=== PATIENT | male | born 1960 | race Caucasian/White ===

== ENCOUNTER 2020-08-19 14:50 | Outpatient (REF) | payer MEDICARE, MEDICAID, SELFPAY ==
[2020-08-19 15:51] LABS: Hematocrit 38.1 % (42-52); Hemoglobin 12.3 g/dl (14.0-18.0); Mean Corpuscular HGB Conc 32.3 g/dl (31.0-36.0); Mean Corpuscular Hemoglobin 28.7 pg (27.0-33.0); Mean Corpuscular Volume 88.8 fL (80-98); Mean Platelet Volume 12.4 fL (9.4-12.4); Platelet Count 165 X10*3/uL (160-400); Red Blood Count 4.29 X10*6/uL (4.60-5.80); Red Cell Distribution Width 13.2 % (11.0-16.0)
[2020-08-19 15:55] LABS: Glucose Urine UA NEG (NEG); Leukocyte Esterase Urine NEG (NEG); Nitrite Urine NEG (NEG); PH 5.5 (5.0-8.0); Specific Gravity - Urine 1.015 (1.005-1.025); Urine Blood TRACE (NEG); Urine Ketones NEG (NEG); Urine Protein NEG (NEG-TRACE)
[2020-08-19 15:56] LABS: Appearance Urine CLEAR; Color Urine YELLOW
[2020-08-19 16:05] LABS: WBC Urine 0 /HPF (0-4)
[2020-08-19 16:17] LABS: Albumin Level 4.7 g/dL (3.5-5.0); Anion Gap 13 (12-20); Blood Urea Nitrogen 24 mg/dL (9-16); Calcium 10.4 mg/dL (8.4-10.2); Carbon Dioxide 27 mmol/L (22-29); Chloride 107 mmol/L (96-108); Estimated Glomerular Filt Rate > 60; Magnesium 1.7 mg/dL (1.6-2.6); Phosphorus 2.8 mg/dL (2.7-4.5); Potassium 4.5 mmol/L (3.3-5.1); Sodium 142 mmol/L (135-145)
[2020-08-19 16:21] LABS: Creatinine Urine 47.42 mg/dL; Protein/Creatinine Ratio, Ur 0.25 (<0.2); Total Protein Urine Random 12 mg/dL (<12)
[2020-08-19 16:38] LABS: Vitamin D 25-OH Total 24.8 ng/mL (>30)
[2020-08-20 19:47] LABS: Calcium (PTHI) 10.3 mg/dL (8.6-10.3); PTHI 72 pg/mL (14-64)
== END 2020-08-19 14:51 | disposition home or self-care (01) ==
LOC: HO.LAB 14:50
PROVIDERS: Visit Provider Internal Medicine Nephrology
DX: N25.0 Renal osteodystrophy (principal); N18.31 Chronic kidney disease, stage 3a; I10 Essential (primary) hypertension; E11.21 Type 2 diabetes mellitus with diabetic nephropathy; R80.1 Persistent proteinuria, unspecified
CPT/HCPCS: 36415; 80051; 81001; 82040; 82306; 82310; 82565; 83735; 83970; 84100; 84156; 84520; 85027; 87086

== ENCOUNTER 2020-09-25 08:11 | Emergency (ER) | payer MEDICARE, MEDICAID, SELFPAY ==
--- NOTE | ~2020-09-25 | XR_ITS ---
EXAMINATION: CHEST AND LEFT RIB X-RAY AND LUMBAR SPINE X-RAY CLINICAL INFORMATION: Pain. No history of trauma. COMPARISON: Previous chest x-rays most recent January 2012 TECHNIQUE: 3 views of the lumbar spine and one view of the chest and 3 views of the left ribs FINDINGS: Lumbar spine: Bone alignment is normal. No fracture or dislocation is seen. There is multilevel degenerative spondylosis. There is degenerative disc disease at L5-S1. There is lower lumbar spine facet arthritis. There is evidence of atherosclerotic disease. There is a radiopaque density that projects over the left superior endplate of the L4 vertebral body on the AP view. This is not appreciated on lateral views. Chest and left RIBS: The cardiac and mediastinal contours are normal. The lungs are clear. There is no pleural effusion or pneumothorax. There are degenerative changes of the spine. The left ribs are unremarkable. No fracture or bone lesion is seen. XR/XR lumbar spine 2-3V IMPRESSION: Lumbar spine: Degenerative changes. Chest and left RIBS: Degenerative changes of the thoracic spine otherwise exam.
--- NOTE | ~2020-09-25 | XR_ITS ---
EXAMINATION: CHEST AND LEFT RIB X-RAY AND LUMBAR SPINE X-RAY CLINICAL INFORMATION: Pain. No history of trauma. COMPARISON: Previous chest x-rays most recent January 2012 TECHNIQUE: 3 views of the lumbar spine and one view of the chest and 3 views of the left ribs FINDINGS: Lumbar spine: Bone alignment is normal. No fracture or dislocation is seen. There is multilevel degenerative spondylosis. There is degenerative disc disease at L5-S1. There is lower lumbar spine facet arthritis. There is evidence of atherosclerotic disease. There is a radiopaque density that projects over the left superior endplate of the L4 vertebral body on the AP view. This is not appreciated on lateral views. Chest and left RIBS: The cardiac and mediastinal contours are normal. The lungs are clear. There is no pleural effusion or pneumothorax. There are degenerative changes of the spine. The left ribs are unremarkable. No fracture or bone lesion is seen. XR/XR ribs LT min 3V w CXR1V IMPRESSION: Lumbar spine: Degenerative changes. Chest and left RIBS: Degenerative changes of the thoracic spine otherwise exam.
[2020-09-25 08:37] VITALS: BP 132/68; PULSE 94; RESP 16; TEMP 36.6; O2SAT 99; BMI 25.1
--- NOTE | 2020-09-25 08:46 | ED_ITS ---
HPI - Back Pain/Injury General Chief Complaint: Back Pain/Injury Stated Complaint: lt side flank pain Time Seen by Provider: 09/25/20 08:41 Source: patient Mode of arrival: ambulatory Limitations: no limitations History of Present Illness HPI Narrative: 60-year-old male with a past medical history of intermediate coronary syndrome, hypertension, diabetes, pancytopenia and anemia presenting to the ED with complaints of atraumatic lower back pain since yesterday worse today. Also reports that when he was resting in bed last night he fell almost like a muscle spasm to his left lateral ribcage although resolved shortly after and has not returned. Denies any dizziness, fevers, neck pain/stiffness, runny nose, nasal congestion, changes in vision, nausea/vomiting, jaw pain, palpitations, chest pain, cough, shortness of breath, dyspnea on exertion, orthopnea, lower extremity edema, abdominal pain, dysuria, hematuria, incontinence, diarrhea constipation or any other symptoms complaints or concerns at this time. MD elicited complaint: back pain Pertinent past history: prior back pain (Was told he had arthritis) Onset (ago): day(s) (Since yesterday) Timing: constant and progressively worsening Severity: mild Similar Symptoms Previously: Yes Quality: aching Location: lumbar spine, right lower back and left lower back Radiation: none Exacerbating factors: none Relieving factors: none Associated symptoms: denies other symptoms Work related injury: No Related Data Home Medications Medication Instructions Recorded Confirmed Artificial Tears (PF) 03/15/20 acetaminophen [Tylenol Extra 500 mg PO Q6H PRN 03/15/20 03/15/20 Strength] amlodipine 5 mg PO DAILY 03/15/20 03/15/20 aspirin [Aspir-81] 03/15/20 atorvastatin 40 mg PO DAILY 03/15/20 03/15/20 gabapentin 100 mg PO TID 03/15/20 03/15/20 hydralazine 50 mg PO BID 03/15/20 03/15/20 insulin glargine [Lantus U-100 20 unit SUBCUT DAILY 03/15/20 03/15/20 Insulin] losartan 50 mg PO DAILY 03/15/20 03/15/20 metformin [Glucophage] 1,000 mg PO DAILY 03/15/20 03/15/20 Previous Rx's Medication Instructions Recorded cyclobenzaprine 10 mg PO Q8H #10 tab 09/25/20 lidocaine HCl [Aspercreme 1 appl TOPICAL BID PRN #120 g 09/25/20 (lidocaine HCl)] naproxen 500 mg PO BID PRN #10 tab 09/25/20 oxycodone-acetaminophen [Percocet] 1 tab PO Q6H PRN #10 tab 09/25/20 Allergies Allergy/AdvReac Type Severity Reaction Status Date / Time Penicillins [PENICILLINS] AdvReac Intermediate INCREASED Unverified 12/28/19 16:24 FEVER(CHILDHOOD) PCN Allergy Unknown ? reaction Uncoded 05/01/13 00:00 Review of Systems Review of Systems: Constitutional : No trauma, No Weight loss, No Fever, No Chills, ENT/Mouth : No Hearing loss, No Ear Pain, No Nasal Congestion, No Sinus Pain, No Hoarseness, No sore throat, No Rhinorrhea, No Swallowing Difficulty Cardiovascular : positive left lateral rib cage pain, No Chest Pain, No SOB Respiratory : No Cough, No Dyspnea Gastrointestinal : No Nausea, No Vomiting, No Diarrhea, No abdominal Pain, No Hematochezia, No Melena Genitourinary : No Dysuria, No Urinary Frequency, No Hematuria, No Urinary or Bowel Incontinence/retention Musculoskeletal : + Back pain, No neck pain, No joint stiffness, No joint swelling Skin : No Skin Lesions, No rash or signs of infection Neuro : No Weakness, No radiation, No Numbness, No Paresthesias, No headache, no loss of bowel or bladder incontinence, no saddle anesthesia, Focal weakness, No radiation Denies history of IV drug usage. Yes all other systems are reviewed and are negative PMFSH Past Medical History Attestation statement: The following information was validated with the patient. Medical History Anemia Diabetes HTN (hypertension) Pancytopenia Family History Family History Brother Diabetes HTN (hypertension) Mother Diabetes HTN (hypertension) Social History Social History Alcohol intake: former Advance Directives: No Advance Directives Information Provided: No Physical Exam Vital Signs: Vital Signs: Last Vital Signs Temp 99.1 F 09/25/20 09:23 Pulse 85 09/25/20 09:23 Resp 16 06/16/21 09:23 BP 120/68 09/25/20 09:23 Pulse Ox 99 09/25/20 09:23 Body Mass Index 25.1 vital signs have been reviewed as normal and appeared to be correct. Blood pressure normal. Heart rate normal. Respiration rate normal. Temperature normal. Oxygen saturation normal. Appearance: Alert. Oriented X3. No acute distress. Head: Normal external exam. Normocephalic. Atraumatic. Eyes: PERRLA. EOMI. Conjunctiva and sclera normal. Eyelids normal. ENT: EAC normal. TM's Normal. Pharynx normal. Uvula midline. Moist mucous membranes. Neck: Normal inspection. Neck supple. FROM. No adenopathy. Thyroid Normal. No meningeal signs. No neck mass noted. CVS: Normal heart rate and rhythm. Heart sound normal. No murmurs noted. Pulses normal throughout. Respiratory: No respiratory distress. Painless inspiration. Breath sounds normal. No wheezes/rales/rhonchi noted. Chest nontender. No accessory muscle usage noted or decreased air movement noted. No rashes/induration/fluctuance or signs of infection noted. No crepitus noted. Abdomen: Soft and nontender. Bowel sounds normal in all 4 quadrants. No distention noted. No organomegaly noted. No visible injury noted. Back: No CVA tenderness. Full range of motion noted. No obvious deformities, or edema. Mild para-spinal muscular tenderness from lumbar region to coccyx. Full ROM in back and lower extremities. 5/5 strength hip extension/flexion, abduction, adduction. Mild Lumbar pain with hip flexion against resistance. Straight leg raise test negative on right; Straight leg raise test negative on left; Reflexes normal ankle and knee bilaterally; EHL motor strength normal bilaterally. No rashes/lesion/induration/fluctuance or signs infection noted. Skin: Skin warm and dry. Normal skin color. Normal skin turgor. No rashes/lesions/lacerations noted. Extremities: Extremities exhibit normal range of motion. Extremities nontender. Neuro: Oriented X 3. No motor deficit. No sensory deficit. Reflexes normal. Patient has a normal steady gait. Course Course Course Narrative: Pt c likely muscular pain, but could be herniated disc. Neuro exam shows no deficits. Not c/w AAA/epidural abscess/dissection.No high risk Hx (Incont, fever, immunosupp, recent surgery/LP, coag, signif trauma, wt loss, puls mass, hx/o Ca, TB, or IVDU) to warrant MRI/CT today. Not c/w Pyelo/UTI/kidney stone/spinal fx. Not cauda equina syndrome. Patient requested imaging of ribs and lumbar spine therefore obtained and revealed chronic changes such as arthritis no acute processs. DC c meds and f/u. MDM - Back Pain/Injury Medical Records Attestation: I reviewed the patient's medical records. Imaging Data Left sided ribs/PA chest/lumbar spine x-rays: Attestation: I personally reviewed and interpreted this imaging study as follows: Radiologist's impression: FINDINGS: Lumbar spine: Bone alignment is normal. No fracture or dislocation is seen. There is multilevel degenerative spondylosis. There is degenerative disc disease at L5-S1. There is lower lumbar spine facet arthritis. There is evidence of atherosclerotic disease. There is a radiopaque density that projects over the left superior endplate of the L4 vertebral body on the AP view. This is not appreciated on lateral views. Chest and left RIBS: The cardiac and mediastinal contours are normal. The lungs are clear. There is no pleural effusion or pneumothorax. There are degenerative changes of the spine. The left ribs are unremarkable. No fracture or bone lesion is seen. XR/XR lumbar spine 2-3V IMPRESSION: Lumbar spine: Degenerative changes. Chest and left RIBS: Degenerative changes of the thoracic spine otherwise exam. Discharge Plan Discharge Clinical Impression: Thoracic arthritis, Arthritis, lumbar spine, Degenerative disc disease at L5-S1 level, Rib pain on left side Patient Disposition: Home, Self-Care Instructions: Muscle Spasm (ED), Degenerative Disc Disease (ED), Arthritis (ED) Prescriptions: New lidocaine HCl [Aspercreme (lidocaine HCl)] 4 % cream 1 appl topical BID PRN (Reason: pain) Qty: 120 RF: 0 cyclobenzaprine 10 mg tablet 10 mg PO Q8H Qty: 10 RF: 0 oxycodone-acetaminophen [Percocet] 5-325 mg tablet 1 tab PO Q6H PRN (Reason: pain) Qty: 10 RF: 0 naproxen 500 mg tablet 500 mg PO BID PRN (Reason: pain) Qty: 10 RF: 0 No Action Artificial Tears (PF) RF: 0 losartan 50 mg Tablet 50 mg PO DAILY RF: 0 Lantus U-100 Insulin 100 unit/mL Solution 20 unit SUBCUT DAILY RF: 0 amlodipine 5 mg Tablet 5 mg PO DAILY RF: 0 aspirin [Aspir-81] 81 mg Tablet,Delayed Release (Dr/Ec) RF: 0 metformin [Glucophage] 1,000 mg Tablet 1,000 mg PO DAILY RF: 0 hydralazine 50 mg Tablet 50 mg PO BID RF: 0 acetaminophen [Tylenol Extra Strength] 500 mg Capsule 500 mg PO Q6H PRN (Reason: Pain) RF: 0 gabapentin 100 mg Tablet 100 mg PO TID RF: 0 atorvastatin 40 mg Tablet 40 mg PO DAILY RF: 0 Referrals: [facility] [Primary Care Provider] - 2 days Print Language: Welsh
[2020-09-25 09:23] VITALS: BP 120/68; PULSE 85; RESP 16; TEMP 37.3; O2SAT 99
== END 2020-09-25 09:55 | disposition home or self-care (01) ==
PROVIDERS: Emergency Provider Emergency Medicine
DX: M51.37 Other intervertebral disc degeneration, lumbosacral region (principal); M47.816 Spondylosis without myelopathy or radiculopathy, lumbar region; M47.814 Spondylosis without myelopathy or radiculopathy, thoracic region; R07.81 Pleurodynia; I10 Essential (primary) hypertension; E11.9 Type 2 diabetes mellitus without complications; D64.9 Anemia, unspecified; Z79.4 Long term (current) use of insulin; Z79.899 Other long term (current) drug therapy
CPT/HCPCS: 71101; 72100; 99282; 99283

== ENCOUNTER 2021-06-17 09:02 | Outpatient (REF) | payer MEDICARE, MEDICAID, SELFPAY ==
[2021-06-17 09:35] LABS: MANUAL DIFF FLAG NO
[2021-06-17 10:04] LABS: Basophils Percent Auto 0.5 % (0-2); Eosinophils Percent Auto 0.8 % (0-4); Hemoglobin 13.2 g/dl (14.0-18.0); Imm Gran Abs Auto 0.01 X10*3/uL (0.00-0.03); Imm Gran Pct Auto 0.3 % (0.0-0.4); Lymphocytes Absolute Auto 1.8 X10*3/uL (1.2-4.9); Lymphocytes Percent Auto 46.2 % (20-40); Mean Corpuscular HGB Conc 32.2 g/dl (31.0-36.0); Mean Corpuscular Hemoglobin 28.8 pg (27.0-33.0); Mean Corpuscular Volume 89.5 fL (80.0-98.0); Mean Platelet Volume 12.8 fL (9.4-12.4); Monocytes Absolute Auto 0.4 X10*3/uL (0.1-1.2); Monocytes Percent Auto 9.6 % (2-11); Neutrophils Absolute Auto 1.7 x10*3/uL (2.0-8.3); Neutrophils Percent Auto 42.6 % (45-73); Platelet Count 154 X10*3/uL (160-400); Red Blood Count 4.58 X10*6/uL (4.60-5.80); Red Cell Distribution Width 13.2 % (11.0-16.0)
[2021-06-17 10:11] LABS: Appearance Urine CLEAR; Color Urine YELLOW; Glucose Urine UA NEG (NEG); Leukocyte Esterase Urine NEG (NEG); Nitrite Urine NEG (NEG); Urine Blood NEG (NEG); Urine Ketones NEG (NEG); Urine Protein NEG (NEG-TRACE)
[2021-06-17 10:37] LABS: Estimated Average Glucose 154 mg/dL
[2021-06-17 10:51] LABS: Vitamin D 25-OH Total 34.9 ng/mL (>30)
[2021-06-17 10:52] LABS: Albumin Level 4.7 g/dL (3.5-5.0); Anion Gap 13 (12-20); Blood Urea Nitrogen 20 mg/dL (9-16); Calcium 10.8 mg/dL (8.4-10.2); Carbon Dioxide 26 mmol/L (22-29); Chloride 105 mmol/L (96-108); Cholesterol 203 mg/dL; Estimated Glomerular Filt Rate 57; HDL Cholesterol 62 mg/dL; LDL Cholesterol Calculated 118 mg/dl; Magnesium 1.7 mg/dL (1.6-2.6); Phosphorus 2.5 mg/dL (2.7-4.5); Potassium 4.6 mmol/L (3.3-5.1); Sodium 139 mmol/L (135-145); Triglycerides 116 mg/dL
[2021-06-17 11:17] LABS: Creatinine Urine 71.95 mg/dL; Microalbum/Creatinine Ratio Ur 79.2 ug/mg cr; Protein/Creatinine Ratio, Ur 0.22 (<0.2); Total Protein Urine Random 16 mg/dL (<12)
[2021-06-18 16:01] LABS: Calcium (PTHI) 10.8 mg/dL (8.6-10.3); PTHI 50 pg/mL (14-64)
== END 2021-06-17 09:03 | disposition home or self-care (01) ==
LOC: HO.LAB 09:02
PROVIDERS: Visit Provider Internal Medicine Nephrology
DX: N18.31 Chronic kidney disease, stage 3a (principal); N25.0 Renal osteodystrophy; E11.21 Type 2 diabetes mellitus with diabetic nephropathy; R80.1 Persistent proteinuria, unspecified
CPT/HCPCS: 36415; 80051; 80061; 81003; 82040; 82043; 82306; 82310; 82565; 83036; 83735; 83970; 84100; 84156; 84520; 85025; 87086

== ENCOUNTER 2022-06-15 13:57 | Outpatient (REF) | payer MEDICARE, MEDICAID, SELFPAY ==
[2022-06-15 14:20] LABS: MANUAL DIFF FLAG NO
[2022-06-15 14:43] LABS: Eosinophils Absolute Auto 0.1 X10*3/uL (0.0-0.4); Eosinophils Percent Auto 1.5 % (0-4); Hematocrit 39.3 % (42.0-52.0); Imm Gran Abs Auto 0.02 X10*3/uL (0.00-0.03); Imm Gran Pct Auto 0.5 % (0.0-0.4); Lymphocytes Percent Auto 49.9 % (20-40); Mean Corpuscular HGB Conc 33.1 g/dl (31.0-36.0); Mean Corpuscular Hemoglobin 29.3 pg (27.0-33.0); Mean Corpuscular Volume 88.5 fL (80.0-98.0); Monocytes Absolute Auto 0.4 X10*3/uL (0.1-1.2); Monocytes Percent Auto 10.3 % (2-11); Neutrophils Absolute Auto 1.5 x10*3/uL (2.0-8.3); Neutrophils Percent Auto 36.8 % (45-73); Platelet Count 146 X10*3/uL (160-400); Red Blood Count 4.44 X10*6/uL (4.60-5.80); Red Cell Distribution Width 12.6 % (11.0-16.0)
[2022-06-15 14:47] LABS: Appearance Urine Clear; Color Urine Yellow; Glucose Urine UA Negative (Negative); Leukocyte Esterase Urine Negative (Negative); Nitrite Urine Negative (Negative); PH 5.5 (5.0-9.0); Specific Gravity - Urine 1.015 (1.005-1.025); Urine Blood Negative (Negative); Urine Ketones Negative (Negative); Urine Protein Trace mg/dL (Neg-Trace)
[2022-06-15 15:04] LABS: Creatinine Urine 72.81 mg/dL; Microalbum/Creatinine Ratio Ur 134.5 ug/mg cr; Protein/Creatinine Ratio, Ur 0.25 (<0.2); Total Protein Urine Random 18 mg/dL (<12)
[2022-06-15 15:11] LABS: Albumin Level 4.5 g/dL (3.5-5.0); Anion Gap 16 (12-20); Blood Urea Nitrogen 23 mg/dL (9-16); Calcium 10.4 mg/dL (8.4-10.2); Carbon Dioxide 24 mmol/L (22-29); Chloride 106 mmol/L (96-108); Estimated Glomerular Filt Rate 56; Magnesium 1.8 mg/dL (1.6-2.6); Potassium 4.3 mmol/L (3.3-5.1); Sodium 142 mmol/L (135-145)
[2022-06-15 15:26] LABS: Vitamin D 25-OH Total 25.5 ng/mL (>30)
[2022-06-16 11:49] LABS: Calcium (PTHI) 10.6 mg/dL (8.6-10.3); PTHI 64 pg/mL (16-77)
== END 2022-06-15 13:58 | disposition home or self-care (01) ==
LOC: HO.LAB 13:57
PROVIDERS: Visit Provider Internal Medicine Nephrology
DX: E11.22 Type 2 diabetes mellitus with diabetic chronic kidney disease (principal); E11.29 Type 2 diabetes mellitus with other diabetic kidney complication; N18.31 Chronic kidney disease, stage 3a; N25.0 Renal osteodystrophy; R80.1 Persistent proteinuria, unspecified
CPT/HCPCS: 36415; 80051; 81003; 82040; 82043; 82306; 82310; 82565; 83735; 83970; 84100; 84156; 84520; 85025; 87086

== ENCOUNTER 2023-05-04 09:15 | Outpatient (REF) | payer MEDICARE, MEDICAID, SELFPAY ==
[2023-05-04 12:01] LABS: Hemoglobin 13.7 g/dl (14.0-18.0); Mean Corpuscular HGB Conc 32.6 g/dl (31.0-36.0); Mean Corpuscular Hemoglobin 29.5 pg (27.0-33.0); Mean Corpuscular Volume 90.3 fL (80.0-98.0); Platelet Count 181 X10*3/uL (160-400); Red Blood Count 4.65 X10*6/uL (4.60-5.80); Red Cell Distribution Width 12.4 % (11.0-16.0); White Blood Count 4.4 X10*3/uL (4.8-10.8)
[2023-05-04 12:09] LABS: Estimated Average Glucose 143 mg/dL; Hemoglobin A1c % 6.6 % (<6.0)
[2023-05-04 12:25] LABS: Syphilis Screen Nonreactive (Nonreactive)
[2023-05-04 12:31] LABS: HBS Num1 1.11 mIU/mL (0-7.99); HBc Num1 0.06 S/CO (0.00-0.79); HBsAGNum1 0.43 S/CO (0.00-0.99); HIV AB/AG Nonreactive (Nonreactive); HIV Num 1 0.07 S/CO (0.00-0.99); Hepatitis B Core Antibody Nonreactive (Nonreactive); Hepatitis B Surface Antigen Negative (Negative); ~HepC Num1 0.06 S/CO (0.00-0.79); ~Hepatitis B Surface Antibody NONREACTIVE (Nonreactive); ~Hepatitis C Antibody Nonreactive (Nonreactive)
[2023-05-04 12:36] LABS: TSH reflex Free T4 2.57 uIU/mL (0.32-4.0)
[2023-05-04 12:50] LABS: Folate 10.1 ng/mL (> or = 4.0); Vitamin B12 > 2000 pg/mL (200-900)
[2023-05-04 12:55] LABS: Alanine Aminotransferase 17 U/L (0-40); Albumin Level 4.3 g/dL (3.5-5.0); Alkaline Phosphatase 60 U/L (39-117); Anion Gap 14 (12-20); Aspartate Amino Transferase 17 U/L (5-37); Bilirubin Total 0.3 mg/dL (0.0-1.0); Blood Urea Nitrogen 22 mg/dL (9-16); Calcium 10.8 mg/dL (8.4-10.2); Carbon Dioxide 29 mmol/L (22-29); Chloride 104 mmol/L (96-108); Cholesterol 261 mg/dL (<200); Estimated Glomerular Filt Rate 59; Glucose Random 131 mg/dL (60-115); HDL Cholesterol 51 mg/dL (>40); LDL Cholesterol Calculated 168 mg/dL (<100); Potassium 4.1 mmol/L (3.3-5.1); Sodium 143 mmol/L (135-145); Total Protein 7.6 g/dL (6.5-8.0); Triglycerides 211 mg/dL (<150)
== END 2023-05-04 09:16 | disposition home or self-care (01) ==
LOC: HO.HHCL 09:15
PROVIDERS: Emergency Medicine; Visit Provider Nurse Practitioner
DX: Z00.00 Encounter for general adult medical examination without abnormal findings (principal); M79.672 Pain in left foot; M63.8 Disorders of muscle in diseases classified elsewhere; I10 Essential (primary) hypertension; E11.42 Type 2 diabetes mellitus with diabetic polyneuropathy; Z79.4 Long term (current) use of insulin; Z11.59 Encounter for screening for other viral diseases; Z72.89 Other problems related to lifestyle
CPT/HCPCS: 36415; 80053; 80061; 82607; 82746; 83036; 84443; 85027; 86704; 86706; 86780; 86803; 87340; 87389

== ENCOUNTER 2023-06-11 12:58 | Outpatient (REF) | payer MEDICARE, MEDICAID, SELFPAY ==
--- NOTE | 2023-06-11 13:02 | EMG_ITS ---
Chief complaint: At least 6 months of tingling, electricity, pain on left lateral foot and small toe On further questioning, patient says yes history of arthritis in the back. But denies current back pain. Reason for referral: Evaluate for neuropathy Referred by: Mariaa Hensley NP Procedure done: Evaluate for neuropathy Precautions and/or limitations: None The limb temperature was monitored continuously and remained between 32-36 degrees C during the performance of the NCS. Nerve Conduction Studies Anti Sensory Summary Table ?Stim Site NR Onset (ms) Norm Onset (ms) Peak (ms) Norm Peak (ms) O-P Amp (?V) Norm O-P Amp Site1 Site2 Delta-0 (ms) Dist (cm) Jorge (m/s) Norm Jorge (m/s) Left Sural Anti Sensory (Lat Mall) Calf ? 2.8 3.5 <4.0 8.0 >5.0 Calf Lat Mall 2.8 14.0 50 Right Sural Anti Sensory (Lat Mall) calf ? 2.7 3.6 5.7 Motor Summary Table ?Stim Site NR Onset (ms) Norm Onset (ms) O-P Amp (mV) Norm O-P Amp iAmp (mV) Amp (1st) (%) Site1 Site2 Delta-0 (ms) Dist (cm) Jorge (m/s) Norm Jorge (m/s) Left Peroneal Motor (Ext Dig Brev) Ankle ? 5.0 <4.0 7.0 >2.5 8.5 100.0 Ankle Ext Dig Brev 5.0 0.0 B Fib ? 11.3 5.5 6.3 78.6 B Fib Ankle 6.3 31.0 49 >40 Poplt ? 12.6 5.4 6.1 77.1 Poplt B Fib 1.3 6.0 46 >40 Left Tibial Motor (Abd Cook Brev) Ankle ? 5.1 <5 8.5 >2.5 10.9 100.0 Ankle Abd Cook Brev 5.1 0.0 Knee ? 13.8 7.3 8.9 85.9 Knee Ankle 8.7 39.0 45 >40 EMG ?Side Muscle Nerve Root Ins Act Fibs Psw Amp Dur Poly Recrt Int Pat Comment Left AbdHallucis MedPlantar S1-2 Nml Nml Nml Nml Nml 0 Nml Complete Left AntTibialis Dp Br Peron L4-5 Nml Nml Nml Nml Nml 0 Nml Complete Left PostTibialis Tibial L5, S1 Incr 1+ 1+ Nml Nml 0 Nml Complete Left MedGastroc Tibial S1-2 Incr 1+ 1+ Nml Nml 0 Nml Complete Left VastusMed Femoral L2-4 Nml Nml Nml Nml Nml 0 Nml Complete Paraspinal EMG ?Side Muscle Nerve Root Ins Act Fibs Psw Comment Left Lumbar Upper Rami Nml Nml Nml Left Lumbar Mid Rami Nml Nml Nml Left Lumbar Lower Rami Incr 1+ 1+ FINDINGS: Left peroneal nerve showed prolonged distal latency, normal amplitude and normal conduction velocity. Left tibial nerve showed prolonged distal latency, normal amplitude and normal conduction velocity. Bilateral sural nerves within normal. Concentric needle EMG was performed in selected muscles of the left upper extremity and lumbar paraspinals. Study revealed signs of electric abnormalities as shown in the table below. Left medial gastrocnemius, posterior tibialis, left lumbar paraspinals showed increased insertional activity, PSWs and fibrillations. IMPRESSION: 1. This is an abnormal study. 2. There is electrodiagnostic evidence for left L5-S1 radiculopathy.. 3. There is no electrodiagnostic evidence for lumbosacral plexopathy, or peripheral neuropathy. CLINICAL COMMENT: Further clinical correlation recommended. Thank you for your kind referral. Ani Magallanes MD, GIANNI Board Certified, [place] Board [employer] and Rehabilitation (ABPMR) Board Certified, [place] Board of Electrodiagnostic Medicine (ABEM) [facility] [id number] [facility]
== END 2023-06-11 12:59 | disposition home or self-care (01) ==
LOC: HO.NEURO 12:58
PROVIDERS: Visit Provider Nurse Practitioner
DX: M79.672 Pain in left foot (principal)
CPT/HCPCS: 95886; 95908

== ENCOUNTER → 2023-06-11 13:02 | Outpatient (BNV) | payer MEDICARE, MEDICAID, SELFPAY | PROVIDERS: Visit Provider Physical Medicine & Rehabilitation | DX: M54.16 Radiculopathy, lumbar region (principal) | CPT/HCPCS: 95886; 95908 ==

== ENCOUNTER → 2023-12-08 13:33 | Outpatient (RCR) | payer MEDICARE, MEDICAID, SELFPAY ==
[2020-03-15 09:43] VITALS: BP 144/77; PULSE 92; RESP 12; TEMP 37; O2SAT 98; BMI 28.9
--- NOTE | 2020-03-15 09:58 | P.PNHO_ITS ---
Medical Summary - Medical Summary Date of Service: 03/23/20 Chief complaint: Follow-up for anemia. Pancytopenia. Medical Summary: DIAGNOSIS: Anemia. Pancytopenia. Interval History Interval history: 56-year-old gentleman here for a followup visit. He is doing extremely well, except for recent cold and sinus symptoms. He says there is nothing new with his medical history nor any medication changes. He denies any easy fatigability nor tiredness. No headaches nor dizziness. Denies any symptoms of chest pain nor trouble breathing. No fevers nor chills. Denies abdominal pain nausea or vomiting heartburn indigestion. Bowels are moving without any gross blood in it. Enjoys his appetite. His weight is stable. Denies any urinary problems. He used to get back pain but that has resolved now. He is in good spirits. Rest of the review of systems is unremarkable. WBC 3.6 (Oct 01, ABS NEUT COUNT 1.5 (Apr 09, RBC 4.61 (Oct 01, HGB 13.0 L (Oct 01, HCT 40.7 L (Oct 01, MCV 88.3 (Oct 01, MCH 28.2 (Oct 01, MCHC 31.9 (Oct 01, PLATELET CT 160 (Oct 01, Review of Systems - Constitutional Reports system reviewed and no additional complaints, except as documented, Reports daytime sleepiness, Denies excessive sweating, Denies lack of energy - Eyes Reports system reviewed and no additional complaints, except as documented, D enies blurry vision - ENT Reports system reviewed and no additional complaints, except as documented - Cardiovascular Reports system reviewed and no additional complaints, except as documented, Reports chest pain at rest - Respiratory Reports no additional respiratory complaints, Denies chest congestion - Gastrointestinal Reports system reviewed and no additional complaints, except as documented, Denies abdominal pain, Denies change in bowel habits - Genitourinary Genitourinary: Reports no additional male genitourinary complaints, Denies blood in urine - Musculoskeletal Reports system reviewed and no additional complaints, except as documented - Integumentary/Breasts Skin/Breast: Reports no additional skin complaints - Neurologic Reports system reviewed and no additional complaints, except as documented - Psychiatric Reports system reviewed and no additional complaints, except as documented, Denies anxiety - Endocrine Reports no additional endocrine complaints - Hematologic/Lymphatic Reports system reviewed and no additional complaints, except as documented, Denies easy bleeding - Allergic/Immunologic Reports system reviewed and no additional complaints, except as documented, Denies GI upset with certain foods PMFSH Medical History: Medical History (Last Updated 03/15/20 @ 09:45 by Amy Murguia) Anemia Diabetes HTN (hypertension) Pancytopenia Functional capacity: independent ambulation Patient : No Family History: Family History (Last Updated 03/15/20 @ 09:47 by Amy Murguia) Brother Diabetes HTN (hypertension) Mother Diabetes HTN (hypertension) Smoking status: Never smoker Home Medications and Allergies Home Medications Medication Instructions Recorded Confirmed Type Artificial Tears (PF) 03/15/20 History acetaminophen [Tylenol Extra 500 mg PO Q6H PRN 03/15/20 03/15/20 History Strength] amlodipine 5 mg PO DAILY 03/15/20 03/15/20 History aspirin [Aspir-81] 03/15/20 History atorvastatin 40 mg PO DAILY 03/15/20 03/15/20 History gabapentin 100 mg PO TID 03/15/20 03/15/20 History hydralazine 50 mg PO BID 03/15/20 03/15/20 History insulin glargine [Lantus U-100 20 unit SUBCUT DAILY 03/15/20 03/15/20 History Insulin] losartan 50 mg PO DAILY 03/15/20 03/15/20 History metformin [Glucophage] 1,000 mg PO DAILY 03/15/20 03/15/20 History Allergies Allergy/AdvReac Type Severity Reaction Status Date / Time Penicillins [PENICILLINS] AdvReac Intermediate INCREASED Unverified 12/28/19 16:24 FEVER(CHILDHOOD) PCN Allergy Unknown ? reaction Uncoded 05/01/13 00:00 Exam Vital signs: Vital Signs Temp 98.6 F 03/15/20 09:43 Pulse 92 03/15/20 09:43 Resp 12 03/15/20 09:43 BP 144/77 H 03/15/20 09:43 Pulse Ox 98 03/15/20 09:43 Intake & Output 03/14/20 03/15/20 03/15/20 18:59 06:59 18:59 Other: Weight 81.3 kg Weight 81.3 kg Body Mass Index 28.9 - Constitutional Present: no acute distress - Routine HEENT Exam Head: Present: normal inspection Eye: Present: normal appearance ENT: Present: mucous membranes moist - Routine Neck Exam Present: full ROM - Routine Respiratory Exam Present: CTAB - Routine Cardiovascular Exam Cardiovascular: Present: RRR, S1, S2 - Routine Abdominal Exam Present: soft, nontender - Routine Extremities Exam Present: nontender - Routine Back/Spine/Pelvis Exam Back/Spine: Present: full ROM - Routine Skin Exam Present: intact - Routine Neurological Exam Present: alert, oriented X3 - Routine Psychiatric Exam Present: normal affect Data - Labs CBC & Chem 7: 03/15/20 10:20 03/15/20 10:20 Progress Note: A/P (1) Anemia Status: Acute Assessment and plan: 59-year-old gentleman with history of anemia, actually, Pancytopenia. He does have underlying liver disease from alcohol, cirrhosis portal hypertension and hypersplenism. This is the most likely explanation for his chronic Pancytopenia. Differential diagnoses includes an underlying myelo infiltrative disorder like MDS. At this point he does not have any progressive symptoms, nor signs. He is clinically doing well. PLAN: The plan is to continue to follow him along, for now. Will monitor his blood count carefully. If the labs decline will then proceed with a bone marrow exam for further evaluation. He will return in 6 months for a followup visit. Thank you, Please send a copy to Elijah Lance. - Time Spent With Patient Total time spent is greater than 50% in coordination of care (as documented) at patient's floor/unit and/or counseling patient: 25 - 35 minutes
[2020-03-15 10:36] LABS: Baso%MD 0.8 %; Eos%MD 1.1 %; Hematocrit 40.8 % (42-52); Hemoglobin 13.6 g/dl (14.0-18.0); IG%MD 0.6 %; Mean Corpuscular HGB Conc 33.3 g/dl (31.0-36.0); Mean Corpuscular Hemoglobin 28.6 pg (27.0-33.0); Mean Corpuscular Volume 85.9 fL (80-98); Mono%MD 10.2 %; Neut%MD 40.3 %; Platelet Count 164 X10*3/uL (160-400); Red Blood Count 4.75 X10*6/uL (4.60-5.80); Red Cell Distribution Width 12.6 % (11.0-16.0); Retic HGB Equivalent 32.2 pg (30.0-35.0); Reticulocyte Percent 1.4 % (0.5-1.8); Reticulocytes Absolute 0.066 X10*6/uL (0.026-0.095); White Blood Count 3.6 X10*3/uL (4.8-10.8)
[2020-03-15 11:00] LABS: Alanine Aminotransferase 23 U/L (0-40); Albumin Level 4.4 g/dL (3.5-5.0); Alkaline Phosphatase 62 U/L (39-117); Anion Gap 13 (12-20); Aspartate Amino Transferase 25 U/L (5-37); Bilirubin Total 0.5 mg/dL (0.0-1.0); Blood Urea Nitrogen 26 mg/dL (9-16); Calcium 10.3 mg/dL (8.4-10.2); Carbon Dioxide 27 mmol/L (22-29); Chloride 104 mmol/L (96-108); Creatinine Clr Calc Pharmacy 55.7; Estimated Glomerular Filt Rate 51; Glucose Random 148 mg/dL (60-115); Iron 82 mcg/dL (45-160); Lactate Dehydrogenase 213 U/L (118-273); Percent Iron Saturation 24 % (15-50); Sodium 140 mmol/L (135-145); Total Iron Binding Capacity 348 mcg/dL (228-428); Total Protein 7.3 g/dL (6.5-8.0); Unsaturated Iron Binding 266 ug/dL
[2020-03-15 11:23] LABS: Ferritin 45 ng/mL (20-250)
[2020-03-15 11:35] LABS: Folate 18.4 ng/mL (> or = 4.0); Vitamin B12 614 pg/mL (200-900)
[2020-03-15 13:24] LABS: Basophils Percent Manual 1 % (0-1); Eosinophils Percent Manual 1 % (0-4); Lymphocytes Absolute Manual 1.7 X10*3/uL (0.6-4.8); Lymphocytes Percent Manual 46 % (20-40); Monocytes Absolute Manual 0.4 X10*3/uL (0.0-1.2); Monocytes Percent Manual 11 % (2-11); Neutrophils Percent Manual 41 % (45-73)
[2020-03-15 13:25] LABS: Band Neutrophils Percent 0 % (3-5); Neutrophils Absolute Manual 1.5 X10*3/uL (2.2-7.9); Platelet Estimate SLIGHTLY DECREASED (NORMAL); Platelet Morphology Comment NORMAL; RBC Morphology NORMAL
[2020-03-16 17:37] LABS: Haptoglobin 180 mg/dL (43-212)
[2020-03-18 12:47] LABS: IgA 125 mg/dL (47-310); IgG 1079 mg/dL (600-1640); IgM 77 mg/dL (50-300)
== END | disposition home or self-care (01) ==
LOC: HO.ONC 03-15 09:30
PROVIDERS: PCP Nurse Practitioner Family; Referring Provider Nurse Practitioner Family; Visit Provider Internal Medicine Medical Oncology
DX: D61.818 Other pancytopenia (principal); K70.9 Alcoholic liver disease, unspecified; K74.60 Unspecified cirrhosis of liver; K76.6 Portal hypertension; D73.1 Hypersplenism
CPT/HCPCS: 36415; 80053; 82607; 82728; 82746; 82784; 83010; 83540; 83615; 85007; 85027; 85045; 86334; 99214

== ENCOUNTER 2024-12-18 06:34 | Outpatient (REF) | payer MEDICARE, SELFPAY ==
--- OUTSIDE RECORDS SUMMARY | 2024-12-18 06:37 | XMS_ITS | Clinical Summary ---
Author Organization [facility] Address [address] [place] [phone] Phone Care Team Providers Care Periodontal Assistant Name Role Phone Unavailable Primary Care Provider Unavailabl e Allergies Active Allergy Reactions Criticality Noted Date Comments Penicillin V Other (see comments) 07/01/2020 Medications acetaminophen (TYLENOL) 500 MG tablet Active aspirin 81 MG chewable tablet Chew 1 tablet 1 (one) time each day Active atorvastatin (LIPITOR) 40 MG tablet Take 80 mg by mouth 1 (one) time each day Active gabapentin (NEURONTIN) 100 MG capsule Take 1 capsule by mouth 3 (three) times a day Active hydrALAZINE (APRESOLINE) 50 MG tablet Comments: Filled Date: Sep 03 2019 7:53AM Patient Notes: TAKE 1 AND 1/2 TABLETS BY MOUTH TWICE DAILY Duration: 90 09/03/2019 Active insulin glargine (Lantus) 100 UNIT/ML injection 18 Units Active metFORMIN (GLUCOPHAGE) 1000 MG tablet Take 1 tablet by mouth 2 (two) times a day Active polyvinyl alcohol (LIQUIFILM TEARS) 1.4 % ophthalmic solution Active FREESTYLE LITE test strip USE 1 STRIP THREE TIMES A DAY 06/11/2020 Active BD Veo Insulin Syringe U/F 31G X 15/64 0.5 ML misc USE ONCE DAILY WITH INSULIN 06/03/2020 Active Lancets (freestyle) lancets CHECK BLOOD SUGAR 3 TIMES A DAY 06/06/2020 Active valsartan-hydro CHLOROthiazide (Diovan HCT) 320-12.5 MG per tablet Take 1 tablet by mouth 1 (one) time each day 90 tablet 09/20/2023 Active Active Problems Problem Noted Date Diagnosed Date Patient encounter status 06/12/2022 Overview (06/15/2022): Due eye exam in April Labs due, patient will complete before FU in 1 month Stage 3a chronic kidney disease 07/02/2020 Renal osteodystrophy 07/02/2020 Chronic kidney disease stage 2 07/01/2020 Essential hypertension 07/01/2020 Proteinuria 07/01/2020 Type 2 diabetes mellitus wit h diabetic chronic kidney disease 07/01/2020 Neuropathy due to diabetes mellitus 04/27/2018 Retinopathy due to type 2 diabetes mellitus 01/11 Pancytopenia 01/31/2015 Overview (06/15/2022): Sees Dr. Armstrong yearly for monitoring, next due Mar 2021 Hyperlipidemia 01/31/2015 Overview (06/15/2022): Continue on atorvastatin 40 mg PO daily. Recheck lipids Resolved Problems Problem Noted Date Diagnosed Date Resolved Date Type 2 diabetes mellitus without complication 07/02/19 21 07/02/2020 Encounters Date Type Department Care Team Description 12/14/2024 Orders Only [facility] [address] [place] [phone] Meka Castaneda [place] Type 2 diabetes mellitus with diabetic chronic kidney disease (HCC) (Primary Dx); Type 2 diabetes mellitus with complication, not otherwise specified (HCC); Hypertension; Proteinuria, not otherwise specified; Iron deficiency anemia, not otherwise specified from Last 3 Months Immunizations Immunization Administration Dates Next Due Hepatitis A 07/06/2013,05/11/2012 Hepatitis B 07/30/2023, 4,08/03/2012,05/11 Influenza (IM) Preservative Free 02/04/2012 Influenza Split 01/31/2015,02/15/2013 Influenza, Quadrivalent, Pre servative Free 02/26/2023,05/23/2021,06/05/2020,04/01,04/09/2017,06/05/2014 Influenza, Quadrivalent, Wit h Preservative 02/28/2016 Pneumococcal Polysaccharide 02/04/2012, 4 Shingrix 06/05/2020,07/27/2018 Td 05/24/2003 Tdap 07/13/2022,03/09/2012 Family History Medical History Relation Comments Diabetes Mother Hypertension Sibling 1 Diabetes Sibling 2 Relation Status Comments Father Mother Alive Sibling 1 Sibling 2 Social History Tobacco Use Types Packs/Day Years Used Date Smoking Tobacco: Never Alcohol Use Standard Drinks/Week Comments No 0 (1 standard drink = 0.6 oz pur e alcohol) Sex and Gender Information Value Date Recorded Sex Assigned at Not on file Legal Sex Male 5:07 PM EST Gender Identity Not on file Sexual Orientation Not on file Last Filed Vital Signs Vital Sign Reading Time Taken Comments Blood Pressure 160/60 09/20/2023 1:19 PM EDT Pulse 74 09/20/2023 1:19 PM EDT Temperature - - Respiratory Rate - - Oxygen Saturation 96% 09/20/2023 1:19 PM EDT Inhaled Oxygen Concentration - - Weight 80.5 kg (177 lb 6.4 oz) 09/20/2023 1:19 P M EDT Height 167.6 cm (5' 6 ) 07/26/2018 12:00 PM EDT Body Mass Index 28.63 07/26/2018 12:00 PM EDT Plan of Treatment Upcoming Encounters Date Type Department Care Team (Late st Contact Info) Description 12/21/2024 3:30 PM EDT Office Visit [facility] [address] [place] [phone] Bimal Duong MD [address] [facility] [address] [place] [address] Health Maintenance Due Date Last Done Comments Colorectal Cancer Screening: Annual FOBT 08/30/2008 Colorectal Cancer Screening: Colonoscopy 08/30/2008 Colorectal Cancer Screening: Sigmoidoscopy 08/30/2008 Pneumococcal Vaccine: 50+ Years (3 of 3 - PCV) 02/03/2013 02/04/2012, 05/24/2003 Diabetes: Ophthalmology Exam 05/13/2020 Diabetes: Pedal Pulse Checked 05/13/2020 Diabetes: Sensory Foot Exam 05/13/2020 Diabetes: Visual Foot Exam 05/13/2020 Diabetes: Hemoglobin A1C 11/08/20242 025, 07/30/2023, 06/17/2021 Influenza Vaccine (#1) 2024 3, 05/23/2021, 06/05/2020, Additional history exists Pneumococcal Vaccine: Peds (0 to 5 Years) and At-Risk Patients (6 to 49 Years) Discontinued 02/04/2012, 05/24/2003 Hepatitis B Vaccine Aged Out 07/30/2023, 07/06/2013, 08/03/2012, Additional history exists No longer eligible based on patient's age to complete this topic Procedures Procedure Name Priority Date/Time Associated Diagnosis Comments HEMOGLOBIN A1C Routine 06/17/2021 9:33 AM EST Stage 3a chronic kidney disease (HCC) Renal osteodystrophy Renal disorder due to type 2 diabetes mellitus <Diabetic nephropathy> (HCC) Persistent proteinuria from Last 3 Months or Most Recently Relevant to Health Maintenance Results * Hemoglobin A1c (06/17/2021 9:33 AM EST) Hemoglobin A1C 7.0 % MILLY Comment: Hemoglobin A1C Reference Range Adults: 4.8 - 6.0 % Non diabetic: < 6.0 % Goal: < 7.0 % Additional Action Suggested: > 8.0 % Note: Hemoglobin A1c results are invalid for patients with abnormal amounts of HbF. Blood transfusions may impact the HbA1c concentration in the patient sample. Estimated Average Glucose 154 mg/dL MILLY Comment: eAG = Estimated average glucose which is %A1C expressed as average glucose, using the formula of the [id number] Average Glucose study (ADAG), Diabetes Care, Vol.31,#8, Nov. 2007 Blood specimen (specimen) Venous blood / Unknown 06/17/2021 9:33 AM EST 06/17/2021 9:33 AM EST us Bimal Duong MD LAB BLOOD ORDERABLES Final Re sult [place] from Last 3 Months or Most Recently Relevant to Health Maintenance Insurance [facility] [place] [id number] Medicare
--- OUTSIDE RECORDS SUMMARY | 2024-12-18 06:37 | XMS_ITS | Clinical Summary ---
Author Organization [employer] Address [address] [facility] [address] [place] [address] Care Team Providers Care Tab Cutter Name Role Phone Abidaandreia Mariaa LJ Primary Care Provider [phone] Allergies Active Allergy Reactions Criticality Noted Date Comments Penicillins Other 05/12/2012 Medications acetaminophen (Tylenol) 500 MG tabletIndications: Pain of left calf Take 2 tablets (1,000 mg) by mouth every 8 (eight) hours if needed for mild pain, moderate pain or fever. 90 tablet 3 07/14/19 23 Active Diclofenac Sodium (Voltaren) 1 % gelIndications:Stefano n of left calf Apply 2 g topically if needed in the morning and at bedtime (muscle pain). 100 g 3 07/14/19 23 Active insulin pen needle (BD Pen Needle Lillian U/F) 32G x 4 mm miscIndications:Ty pe 2 diabetes mellitus with diabetic polyneuropathy, with long-term current use of insulin (CMS/[facility]) USE ONCE A DAY WITH INSULIN 100 each 12 07/30/19 24 Active glucose 4 g chewable tabletIndications: Type 2 diabetes mellitus with diabetic polyneuropathy, with long-term current use of insulin (CMS/HCC) CHEW 4 TABLETS IF NEEDED FOR LOW BLOOD SUGAR 120 tablet 5 03/01/20 24 Active glucose blood (FREESTYLE LITE) test stripIndications:T ype 2 diabetes mellitus with diabetic polyneuropathy, with long-term current use of insulin (CMS/HCC) USE TO TEST BLOOD SUGAR THREE TIMES DAILY 100 each 3 08/03/19 25 Active insulin glargine (Lantus SoloStar) 100 UNIT/ML penIndications:Typ e 2 diabetes mellitus with diabetic polyneuropathy, with long-term current use of insulin (CMS/[facility]) INJECT 18 UNITS SUBCUTANEOUSLY EVERY EVENING 15 mL 2 08/03/19 25 Active metFORMIN (Glucophage) 1000 MG tabletIndications: Type 2 diabetes mellitus with diabetic polyneuropathy, with long-term current use of insulin ([facility]) CORBY SOSA TABLETA DOS VECES AL D A WITH MORNING AND EVENING MEALS 180 tablet 08/10/19 25 Active hydrALAZINE (Apresoline) 50 MG tabletIndications: Essential hypertension TAKE 1 + 1/2 TABLETS BY MOUTH TWICE A DAY WITH FOOD 270 tablet 1 08/10/19 25 Active gabapentin (Neurontin) 100 MG capsuleIndications :Left foot pain TAKE 2 CAPSULE BY MOUTH 3 TIMES DAILY. 180 capsule 1 08/10/19 25 Active atorvastatin (Lipitor) 80 MG tabletIndications: Essential hypertension,Mixed hyperlipidemia TAKE 1 TABLET BY MOUTH AT BEDTIME 90 tablet 1 08/10/19 25 Active aspirin 81 MG EC tablet Take 1 tablet (81 mg) by mouth Once per day. 90 tablet 1 08/10/19 25 Active amLODIPine-valsart an (Exforge) 5-320 MG tabletIndications: Essential hypertension TAKE 1 TABLET BY MOUTH EVERY MORNING 90 tablet 1 08/10/19 25 Active Active Problems Problem Noted Date Diagnosed Date Hypercalcemia 08/10/2023 Assessment & Plan (08/10/2023 10:51 PM EDT): -mildly elevated calcium level of 10.8 on 05/04/23 labs -PE without findings of lethargy, confusion, or muscle weakness -may be due to hydrochlorothiazide. Advised to stop hydrochlorothiazide -Will switch BP medication to amlodipine-valsartan 5-320mg and repeat BMP in 2 weeks -will repeat calcium levels today along with PTH -patient educated to self monitor for symptoms associated with hypercalcemia Screening for colorectal cancer 07/30/2023 Bilateral impacted cerumen 03/08/2023 Assessment & Plan (03/08/2023 2:03 PM EST): -debrox rx sent to pharmacy -patient asymptomatic -will f/u at patients next appointment Left foot pain 03/08/2023 Assessment & Plan (08/10/2023 10:56 PM EDT): -may be resulting from pinched nerve -TSH and folate previously ordered within normal range. Elevated B12 levels, patient advised to discontinue vitamin B12 supplementation for now -called [facility] to refill [facility] -advised to complete EMG RETA Assessment & Plan (10/21/2023 1:18 PM EDT): -abnormal EMG findings of L5-S1 radiculopathy -gabapentin dosing increased to 200 mg TID -will refer to neurology for further work and imaging Assessment & Plan (04/06/2023 10:51 AM EST): -diabetic neuropathy vs. Pinches nerve vs. Vitamin deficiencies -called [facility] -will evaluate TSH, Vitamin B12 and folate for deficiencies -order placed for EMG -may consider neurology referral pending EMG results -f/u in 1 month or sooner prn Assessment & Plan (03/08/2023 2:27 PM EST): -diabetic neuropathy vs pinched nerve -no lumbar involvement -gabapentin refilled -if no improvement in symptoms, will consider EMG testing Type 2 diabetes mellitus wit h diabetic polyneuropathy, with long-term current use of insulin 06/12/2022 Overview (06/12/2022): - Hga1c 6.3% today d/t exercise changes- pt is congratulated - Add Jardiance 25mg - Decrease insulin dose to 18U Lantus nightly - Continue metformin 1000mg BID - Continue gabapentin TID - FU in 1 month Assessment & Plan (11/07/2024 8:28 AM EDT): -A1c meets goal of < 7% with today's POCT A1c 6.8% -continue current medication regimen: metformin 1000mg two times daily, lantus 18 U nightly -advised continued lifestyle and dietary modifications -monitoring labs ordered Assessment & Plan (08/10/2023 11:00 PM EDT): -stable with POCT A1c 6.4% -continue current medication regimen -advised continued lifestyle and dietary modifications -follow-up 3 months Assessment & Plan (03/08/2023 2:32 PM EST): -A1c at goal of <7% per ADA recommendation Lab Results Component Value Date/Time HGBA1C 6.7 (A) 02/26/2023 1029 HGBA1C 6.7 (A) 07/13/2022 1514 HGBA1C 8.6 (H) 06/21/2020 0759 -continue current regimen of lantus and metformin -will evaluate B12 for deficiencies due to metformin use -maintain healthy diet and exercise as outlined below -f/u in 3 months Routine adult health maintenance 06/12/2022 Overview (07/13/2022): Due eye exam in April IZ: up to date Colonoscopy: 08/26/2012; WNL Labs due, patient will complete before FU in 1 month Assessment & Plan (07/30/2023 12:53 PM EDT): -Colonoscopy: referral placed in March. Patient is on wait list. Order placed for cologuard testing in the mean time -Hepatitis C Screen: non-reactive (04/2023) -HIV Screen: non-reactive (04/2023) -STI Screening: Declines -Vision Exam: will discuss at next visit -Dental Care: will discuss at next visit -Immunizations: hepatitis B vaccine received today; will discuss RSV and PCV 20 vaccines at next visit Assessment & Plan (03/08/2023 12:51 PM EST): -flu vaccine received today -due for colonoscopy. Patient states he's waiting for an appointment from GI. He was encouraged to call them as well. Will place a new referral today -HIV, hepatitis, and syphilis screen ordered today. -patient will make an appointment with [facility] -lipid panel ordered Renal osteodystrophy 07/02/2020 Diabetic nephropathy [facility] with type 2 diabetes mellitus 07/01/2020 Proteinuria 07/01/2020 Diabetic neuropathy 04/27/2018 Diabetic retinopathy [facility] with type 2 diabetes mellitus 01/31/2015 Essential hypertension 01/31/2015 Overview (06/12/2022): Continue on amlodipine, hydralazine, losartan and low-dose aspirin. Lower salt diet. Continue home BS monitoring BP wnl today Assessment & Plan (11/07/2024 8:24 AM EDT): -BP meets goal of <150/90 mmHg per JNC8 guidelines for his age -reviewed low salt/low fat diet and advised routine physical activity -continue amlodipine-valsartan 5-320mg, hydralazine 50 mg -monitoring labs ordered to be completed prior to next visit -referral placed for eye exam today Assessment & Plan (08/10/2023 10:40 PM EDT): -BP not at goal target goal of < 130/80 -Office BP today 154/85 -continue hydralazine 50 mg, diovan-hydrochlorothiazide 160-12.5 mg -ASCVD risk: 31.6 % -patient is on high intensity statin and 81 mg ASA -daily BP monitoring advised -low salt diet and 30 min moderate intensity daily exercise recommended -Reviewed ED precautions to include chest pain, shortness of breath, severe headache, sudden vision changes or BP >=180/>=120 mmHg. -Call clinic if three or more BP readings >140/90. -previously elevated calcium level which may be due to hydrochlorothiazide, will consider BP medication change to amlodipine-valsartan if calcium levels remain elevated with today's labs -follow-up 3 months Assessment & Plan (10/21/2023 1:14 PM EDT): -BP progressing towards goal target goal of < 130/80 mgHg -Office BP today 137/76 mmHg -continue hydralazine 50 mg, diovan-hydrochlorothiazide 160-12.5 mg -microalbumin: 134.5 (06/15/2022) repeat ordered today. Seeing nephro this summer -ASCVD risk: 31.6 % -12 lead EKG: complete today -patient is on high intensity statin and 81 mg ASA -daily BP monitoring advised -low salt diet and 30 min moderate intensity daily exercise recommended -Reviewed ED precautions to include chest pain, shortness of breath, severe headache, sudden vision changes or BP >=180/>=120 mmHg. -Call clinic if three or more BP readings >130/80 mmHg. -previously elevated calcium level which may be due to hydrochlorothiazide, will consider BP medication change amlodipine-valsartan if calcium levels remain elevated in today's labs -follow-up 3 months Assessment & Plan (03/08/2023 1:02 PM EST): -progressing towards goal of <130/80 using ANCC guidelines -currently taking Diovan 160-12.5mg and hydralazine 50mg -eliminate sodium from diet -Healthy diet and exercise teaching completed: Eat a variety of fruit and vegetables, whole grains such as whole-wheat flour, bulgur (cracked wheat), oatmeal, and brown rice. Intake protein from beans, nuts, fish, and lean meats. Eat low-fat or fat- free dairy products. Limit highly processed foods such as hot dogs, sandwich meat, etc. Engage in minimum of 150 min of moderate intensity exercise weekly as recommended by ACC Hyperlipidemia 01/31/2015 Overview (06/12/2022): Continue on atorvastatin 40 mg PO daily. Recheck lipids Assessment & Plan (11/07/2024 8:30 AM EDT): -continue atorvastatin 80 mg -diet and lifestyle reinforced -repeat ordered today Assessment & Plan (08/10/2023 10:36 PM EDT): -lipid levels persistently elevated Lab Results Component Value Date LDLCHOLCAL 168 (H) 05/04/2023 CHOL 261 (H) 05/04/2023 TRIG 211 (H) 05/04/2023 HDL 51 05/04/2023 -lipitor dose increased to 80 mg -stressed importance of avoiding highly fatty foods and maintaining daily exercise -will recheck lipids in 3 months Assessment & Plan (07/30/2023 12:48 PM EDT): -continue lipitor 80 mg -Healthy diet and exercise teaching completed: Eat a variety of fruit and vegetables, whole grains such as whole-wheat flour, bulgur (cracked wheat), oatmeal, and brown rice. Intake protein from beans, nuts, fish, and lean meats. Eat low-fat or fat- free dairy products. Limit highly processed foods such as hot dogs, sandwich meat, etc. Engage in minimum of 150 min of moderate intensity exercise weekly Pancytopenia 01/31/2015 Overview (06/12/2022): Sees Dr. Armstrong yearly for monitoring, next due Mar 2021 Stage 3 chronic kidney disease 01/31/2015 Overview (02/26/2023): - BP wnl today - Avoid NSAIDs - Repeat labs, last GFR in [facility] was 56 Assessment & Plan (11/07/2024 8:31 AM EDT): -stage 3a CKD. Being followed closely by nephrology -discussed importance of tight BP and glucose control -avoidance of NSAID's reinforced. Advised to take tylenol if necessary for pain Assessment & Plan (03/08/2023 1:51 PM EST): -stage 3a CKD. Being followed closely by nephrology -BP and Hgb stable today -avoidance of NSAID's reinforced. Advised to take tylenol if necessary for pain Encounters Date Type Department Care Team Description 12/07/2024 Telephone [facility] [address] [place] [address] [phone] Tee Hines MA chart prep 11/15/2024 Telephone [facility] [address] [place] [phone] Jo Saez MA Lab Orders (remind patient to complete labs fasting prior to appointment on 12/09. Thanks ) from Last 3 Months Immunizations Immunization Administration Dates Next Due Hep A, Adult 07/06/2013,05/11/2012 Hep B, adult 07/30/2023, 4,08/03/2012,05/11 Influenza injectable quadriv alent IIV4 with preservative 02/28/2016 Influenza injectable quadriv alent preservative free 02/26/2023,05/23/2021,06/05/2020,04/01,04/09/2017,06/05/2014 Influenza, IIV3, injectable 02/21/2010 Influenza, Split (incl. jocelin fied surface antigen) 01/31/2015,02/15/2013 Influenza, seasonal, injecta ble, preservative free 02/04/2012 Pfizer Covid-19 Vaccine 12+ Bivalent 07/13/2022 Pneumococcal Polysaccharide PPSV23 02/04/2012, TD (adult), 2 Lf tetanus tox oid, preservative free, adsorbed 05/24/2003 Tdap 07/13/2022,03/09/2012 Zoster, Recombinant 06/05/2020,07/27/2018 Social History Tobacco Use Types Packs/Day Years Used Date Smoking Tobacco: Never Smokeless Tobacco: Never Tobacco Cessation:Counseling Given: Not Answered Alcohol Use Standard Drinks/Week Comments Never 0 (1 standard drink = 0.6 oz pur e alcohol) Alcohol Answer Date Recorded How often do you have a drink containing alcohol ? 0 08/09/2024 How many drinks containing a lcohol do you have on a typical day when you are drinking? 0 08/09/2024 How often do you have six or more drinks on one occasion? 0 08/09/2024 Depression Answer Date Recorded Patient Health Questionnaire-9 Score 2 08/09/2024 Patient Health Questionnaire-9 Score 2 08/09/2024 Last PHQ-9: Questionnaire Data Not on file 0 08/09/2024 Housing Stability Answer Date Recorded What is your housing situation today? I have dinorah mckeon 08/09/[address] you li ve. Do you have problems with any of the following? None of the above 08/09/2024 Food Insecurity Answer Date Recorded Within the past 12 months, y ou worried that your food would run out before you got money to buy more: Never True 08/09/2024 Within the past 12 months,th e food you bought just didn't last and you didn't have enough money to get more: Never True Transportation Answer Date Recorded In the past 12 months, has l ack of transportation kept you from medical appts, meetings, work or from getting things needed for daily living? No 08/09/2024 Utilities Answer Date Recorded In the past 12 months, has t he electric, gas, oil or water company threatened to shut off services in your home? No 08/09/2024 Depression Answer Date Recorded Patient Health Questionnaire-2 Score 2 08/09/2024 Internet Access Answer Date Recorded Internet Access Q1 Yes 08/09/2024 Internet Access Q2 Not on file 08/09/2024 Sex and Gender Information Value Date Recorded Sex Assigned at Male 02/09/2022 10:15 AM EDT Legal Sex Male 10:15 AM EDT Gender Identity Male 02/09/2022 10:15 AM EDT Sexual Orientation Straight 02/09/2022 10 :15 AM EDT Last Filed Vital Signs Vital Sign Reading Time Taken Comments Blood Pressure 140/72 08/09/2024 9:55 AM EDT Pulse 72 08/09/2024 9:42 AM EDT Temperature 36.7 C (98 F) 08/09/2024 9:42 AM EDT Respiratory Rate 18 08/09/2024 9:42 AM EDT Oxygen Saturation 98% 08/09/2024 9:42 AM EDT Inhaled Oxygen Concentration - - Weight 78.3 kg (172 lb 9.6 oz) 08/09/2024 9:42 A M EDT Height 167.6 cm (5' 6 ) 08/09/2024 9:42 AM EDT Body Mass Index 27.86 08/09/2024 9:42 AM EDT Plan of Treatment Upcoming Encounters Date Type Department Care Team (Late st Contact Info) Description 12/20/2024 9:00 AM EDT Office Visit [facility] [address] [place] [address] Dung, Zohra, OD [address] [place] [address] Health Maintenance Due Date Last Done Comments CT Colonography 1959 Colonoscopy 1959 Colorectal Cancer Screening 1959 FIT DNA/Cologuard 1959 FIT 1959 FOBT 1959 Sigmoidoscopy 1959 Eye Exam 08/30/1969 Pneumococcal Vaccine: 50+ Years (2 of 2 - PCV) 02/03/2013 02/04/2012, 05/24/2003 RSV Patients and Patients Aged 60 years or older (1 - Risk 60-74 years 1-dose series) 2019 Lipid Panel 05/04/2024 05/04/2023 COVID-19 Vaccine ( season) 2024 07/13/2022, 05/23/2021, 07/03/2020 Influenza Vaccine (#1) 2024 3, 05/23/2021, 06/05/2020, Additional history exists Diabetes: Hemoglobin A1C 02/08/2025 025, 07/30/2023, 05/04/2023, Additional history exists Alcohol/Substance Use Screening 08/09/2025 08/09/2024 Depression Screening 08/09/2025 08/09/2024, 08/10/19 25 Diabetes: Foot Exam 08/09/2025 08/09/2024, 08/09/2024, 08/09/2024, Additional history exists SDOH Screening 08/09/2025 08/09/2024 Tobacco Screening 08/09/2025 08/09/2024 DTaP/Tdap/Td Vaccines (3 - Td or Tdap) 07/13/2032 07/13/2022, 03/09/2012, 05/24/2003 Hepatitis A Vaccines Aged Out 07/06/2013, 05/11/19 13 No longer eligible based on patient's age to complete this topic Zoster Vaccines Completed 06/05/2020, 07/27/2018 Hepatitis C Screening Completed 05/04/2023 Hepatitis B Vaccines Completed 07/30/2023, 07/06/2013, 08/03/2012, Additional history exists HIB Vaccines Aged Out No longer eligi ble based on patient's age to complete this topic HPV Vaccines Aged Out No longer eligi ble based on patient's age to complete this topic IPV Vaccines Aged Out No longer eligi ble based on patient's age to complete this topic Meningococcal B Vaccine Aged Out No l onger eligible based on patient's age to complete this topic Meningococcal Vaccine Aged Out No bebo grupo eligible based on patient's age to complete this topic RSV under 20 months Aged Out No longe r eligible based on patient's age to complete this topic Rotavirus Vaccines Aged Out No longer eligible based on patient's age to complete this topic Procedures Procedure Name Priority Date/Time Associated Diagnosis Comments POCT GLYCATED HEMOGLOBIN, TOTAL Routine 08/09/2024 9:48 AM EDT Type 2 diabetes mellitus with diabetic polyneuropathy, with long-term current use of insulin (CMS/HCC) HEPATITIS C AB W/REFL TO HCV RNA, QN, PCR Routine 05/04/2023 9:18 AM EST Routine adult health maintenance LIPID PANEL, STANDARD Routine 05/04/2023 9:18 AM EST Routine adult health maintenance from Last 3 Months or Most Recently Relevant to Health Maintenance Results * (ABNORMAL) POCT HGB A1C (08/09/2024 9:48 AM EDT) Hemoglobin A1C 6.8(A) 4.0 - 6.0 % QC Media Lot # [id number] Lot# Expiration Date Blood 08/09/2024 9:48 AM EDT Mariaa Anand NP POINT OF CARE TEST ENTER/EDIT O RDERABLES Final Result * Hepatitis C Antibody with Reflex to HCV, RNA, Quantitative, Real-Time PCR (05/04/2023 9:18 AM EST) Hepatitis C Antibody Nonreactive Nonreactive [facility] Comment:Antibodies to HCV no t detected; does not exclude early acuteHCV infection. Blood Venous blood specimen / Unknown 05/04/2023 9:18 AM EST 05/04/2023 11:27 AM EST Kimberlee Madison [employer] BLOOD ORDERABLES Final Res ult [facility] [address] [place] [phone] * (ABNORMAL) Lipid Panel, Standard (05/04/2023 9:18 AM EST) Triglycerides 211(H) <150 mg/dL [facility] Comment:Desirable Triglyceri de: less than 150 mg/dLBorderline High Triglyceride 150-199 mg/dLHigh Triglyceride: 200-499 mg/dLVery High Triglyceride: greater than or equal to 5OO mg/dL Cholesterol 261(H) <200 mg/dL [facility] Comment:Desirable Cholestero l: less than 200 mg/dLBorderline High Cholesterol: 200-239 mg/dLHigh Cholesterol: greater than 239 mg/dL LDL Cholesterol Calculated 168(H) <100 mg/dL [facility] Comment:Desirable LDL: less than 100 mg/dLNear Optimal/Above Optimal LDL: 110- 129 mg/dLBorderline High LDL: 130-159 mg/dLHigh LDL: 160-189 mg/dLVery High LDL: greater than or equal to 190 mg/dL HDL Cholesterol 51 >40 mg/dL [facility] Comment:Desirable HDL: great er than 40 mg/dL Note: This HDL assay may give artificially low results in patients with liver disease. Blood Venous blood specimen / Unknown 05/04/2023 9:18 AM EST 05/04/2023 11:27 AM EST Kimberlee Madison [facility] BLOOD ORDERABLES Final Res ult Performing Organization Address City/State/[facility] Co de Phone Number [facility] [address] [place] [address] [phone] from Last 3 Months or Most Recently Relevant to Health Maintenance Insurance [place] [address] [place] [id number] [address] [place], [place] [address] [place] [address] Care Teams Tab Cutter Relationship Specialty Start Date End Date Mariaa Anand NP [address] [place] [phone] PCP - General Family Medicine 01/15/23
--- OUTSIDE RECORDS SUMMARY | 2024-12-18 06:37 | XMS_ITS | Encounter Summary ---
Author Organization [employer] Address [address] [facility] [address] [place] [address] Care Team Providers Care Brass Pourer Name Role Phone Mariaa Anand LJ Primary Care Provider [phone] Encounter Details Date Type Department Care Team ([facility] Contact Info) Description 06/11/2023 Orders Only [facility] [address] [place] [address] Provider, MD Carlito Social History Tobacco Use Types Packs/Day Years Used Date Smoking Tobacco: Never Smokeless Tobacco: Never Alcohol Use Standard Drinks/Week Comments Never 0 (1 standard drink = 0.6 oz pur e alcohol) Depression Answer Date Recorded Patient Health Questionnaire-9 Score 0 02/26/2023 Patient Health Questionnaire-9 Score 0 02/26/2023 Last PHQ-9: Questionnaire Data Not on file 1 04/28/2022 Housing Stability Answer Date Recorded What is your housing situation today? I have dinorahsly mckeon 01/26/[address] you li ve. Do you have problems with any of the following? None of the above 01/26/2023 Food Insecurity Answer Date Recorded Within the past 12 months, y ou worried that your food would run out before you got money to buy more: Never True 01/26/2023 Within the past 12 months,th e food you bought just didn't last and you didn't have enough money to get more: Never True Transportation Answer Date Recorded In the past 12 months, has l ack of transportation kept you from medical appts, meetings, work or from getting things needed for daily living? No 01/26/2023 Utilities Answer Date Recorded In the past 12 months, has t he electric, gas, oil or water company threatened to shut off services in your home? No 01/26/2023 Depression Answer Date Recorded Patient Health Questionnaire-2 Score 0 02/26/2023 Sex and Gender Information Value Date Recorded Sex Assigned at Male 02/09/2022 10:15 AM EDT Legal Sex Male 10:15 AM EDT Gender Identity Male 02/09/2022 10:15 AM EDT Sexual Orientation Straight 02/09/2022 10 :15 AM EDT documented as of this encounter Plan of Treatment Upcoming Encounters Date Type Department Care Team (Late st Contact Info) Description 12/20/2024 9:00 AM EDT Office Visit [facility] [address] [place] [address] Dung, Zohra, OD [address] [place] [address] documented as of this encounter Procedures Procedure Name Priority Date/Time Associated Diagnosis Comments EMG Routine 06/11/2023 4:09 PM EST documented in this encounter Results * EMG (06/11/2023 4:09 PM EST) us Historical Provider NEUROLOGY ORDERABLES Mariana l Result documented in this encounter Visit Diagnoses Not on filedocumented in this encounter Additional Health Concerns Assessment Noted Time PHQ-9 Depression Total Score: 0 02/27/20 9:14 AM EST documented as of this encounter Care Teams Brass Pourer Relationship Specialty Start Date End Date Mariaa Anand NP [address] [place], [place] [phone] PCP - General Family Medicine 01/15/23 documented as of this encounter
--- OUTSIDE RECORDS SUMMARY | 2024-12-18 06:37 | XMS_ITS | Encounter Summary ---
Author Organization [employer] Address [facility] [address] [place] [address] Care Team Providers Care Fire Boss Name Role Phone Mariaa Anand MODEL MAKER FIBERGLASS Primary Care Provider [phone] Reason for Visit * Reason Comments Med Change Request Encounter Details Date Type Department Care Team ([facility] Contact Info) Description 05/07/2023 Refill [facility] MEDICINE [address] [place] [address] Mariaa Anand NP [address] [place] [address] Essential hypertension Social History Tobacco Use Types Packs/Day Years [...] housing situation today? I have dinorah mckeon 01/26/[address] you [...] Description 12/20/2024 9:00 AM EDT Office Visit [facility] OPTOMETRY [address] [place], [place] [id number] Dung, Megan, OD [address] [place] [address] documented as of this encounter Visit Diagnoses Diagnosis Essential hypertension Unspecified essential hypertension documented in this encounter Additional Health Concerns Assessment Noted Time PHQ-9 Depression Total Score: 0 02/27/20 9:14 AM EST documented as of this encounter Care Teams Fire Boss Relationship Specialty Start Date End Date Mariaa Anand NP [address] [place] [address] PCP - General Family Medicine 01/15/23 documented as of this encounter
--- OUTSIDE RECORDS SUMMARY | 2024-12-18 06:37 | XMS_ITS | Encounter Summary ---
Author Organization [facility] Address [address] [facility] [address] [place] [address] Phone Care Team Providers Care Client Success Specialist Name Role Phone Unavailable Primary Care Provider Unavailabl e Reason for Visit * Reason Comments Med Refill Encounter Details Date Type Department Care Team (Late st Contact Info) Description 05/11/2024 Refill [facility] [address] [place] [address] Bimal Duong MD [address] [facility] [address] [place] [address] Social History Tobacco Use Types Packs/Day Years Used Date Smoking Tobacco: Never Alcohol Use Standard Drinks/Week Comments No 0 (1 standard drink = 0.6 oz pur e alcohol) Sex and Gender Information Value Date Recorded Sex Assigned at Not on file Legal Sex Male 5:07 PM EST Gender Identity Not on file Sexual Orientation Not on file documented as of this encounter Plan of Treatment Upcoming Encounters Date Type Department Care Team (Late st Contact Info) Description 12/21/2024 3:30 PM EDT Office Visit [facility] [address] [place] [address] Bimal Duong MD [address] [facility] [address] [place] [address] documented as of this encounter Visit Diagnoses Not on filedocumented in this encounter
--- OUTSIDE RECORDS SUMMARY | 2024-12-18 06:37 | XMS_ITS | Encounter Summary ---
Author Organization [facility] Address [address] [facility] [address] [place] [address] Phone Care Team Providers Care Turf Manager Name Role Phone Maya Lance WHEEL SHOP SUPERVISOR Primary Care Provider [phone] Encounter Details Date Type Department Care Team (Late Contact Info) Description 07/09/2020 Orders Only [facility] [address] [facility] [address] [place] [address] ProviderCarlito MD Social History Tobacco Use Types Packs/Day Years [...] Visit [facility] [address] [place] [address] Bimal Duong MD [address] [facility] [address] [place] [address] documented as of this encounter Procedures Procedure Name Priority Date/Time Associated Diagnosis Comments EXT RESULT ENTRY Routine 07/09/2020 documented in this encounter Results * EXT RESULT ENTRY (07/09/2020) us Historical Provider LAB BLOOD ORDERABLES Mariana l Result documented in this encounter Visit Diagnoses Not on filedocumented in this encounter Care Teams Turf Manager Relationship Specialty Start Date End Date Maya Lance NP PCP - General Nurse Practitioner 07/30/20 09/16/23 documented as of this encounter
--- OUTSIDE RECORDS SUMMARY | 2024-12-18 06:37 | XMS_ITS | Encounter Summary ---
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); Type 2 diabetes mellitus with complication, not otherwise specified (HCC); Hypertension; Proteinuria, not otherwise specified; Iron deficiency anemia, not otherwise specified Social History Tobacco Use Types Packs/Day Years [...] Encounters Date Type Department Care Team (Late Contact Info) Description 12/21/2024 3:30 PM EDT Office Visit [facility] [address] [place] [address] Bimal Duong MD [address] [facility] [address] [place] [address] Scheduled Orders Name Type Priority Associated Diagnoses Orde r Schedule Renal function panel Lab Routine Type 2 diabetes mellitus with diabetic chronic kidney disease (HCC) Type 2 diabetes mellitus with complication, not otherwise specified (HCC) Hypertension Proteinuria, not otherwise specified Iron deficiency anemia, not otherwise specified Expected: 12/14/2024, Expires: 01/13/2026 CBC and differential Lab Routine Type 2 diabetes mellitus with diabetic chronic kidney disease (HCC) Type 2 diabetes mellitus with complication, not otherwise specified (HCC) Hypertension Proteinuria, not otherwise specified Iron deficiency anemia, not otherwise specified Expected: 12/14/2024, Expires: 01/13/2026 Urine culture Lab Routine Type 2 diabetes mellitus with diabetic chronic kidney disease (HCC) Type 2 diabetes mellitus with complication, not otherwise specified (HCC) Hypertension Proteinuria, not otherwise specified Iron deficiency anemia, not otherwise specified Expected: 12/14/2024, Expires: 01/13/2026 Urinalysis with microscopic Lab Routine Type 2 diabetes mellitus with diabetic chronic kidney disease (HCC) Type 2 diabetes mellitus with complication, not otherwise specified (HCC) Hypertension Proteinuria, not otherwise specified Iron deficiency anemia, not otherwise specified Expected: 12/14/2024, Expires: 01/13/2026 Urine Protein / creatinine ratio Lab Routine Type 2 diabetes mellitus with diabetic chronic kidney disease (HCC) Type 2 diabetes mellitus with complication, not otherwise specified (HCC) Hypertension Proteinuria, not otherwise specified Iron deficiency anemia, not otherwise specified Expected: 12/14/2024, Expires: 01/13/2026 documented as of this encounter Visit Diagnoses Diagnosis Type 2 diabetes mellitus with diabetic chronic kidney disease (HCC)- Primary Type 2 diabetes mellitus with complication, not otherwise specified (HCC) Hypertension Proteinuria, not otherwise specified Iron deficiency anemia, not otherwise specified documented in this encounter
--- OUTSIDE RECORDS SUMMARY | 2024-12-18 06:37 | XMS_ITS | Encounter Summary ---
Author Organization [employer] Address [address] [facility] [address] [place] [address] Care Team Providers Care Instructional Consultant Name Role Phone Mariaa Anand MECHANICAL AND AUTO BODY CAR CHECKER Primary Care Provider [phone] Reason for Visit * Reason Comments Med Refill Encounter Details Date Type Department Care Team ([facility] Contact Info) Description 07/05/2023 Refill [facility] MEDICINE [address] [place] [address] Mariaa Anand NP [address] [place] [address] Essential hypertension; Mixed hyperlipidemia Social History Tobacco Use Types Packs/Day Years [...] your housing situation today? I have dinorah mckoen 01/26/[address] you li [...] [facility] [address] [place], [place] [phone] Dung, Zohra, OD [address] [place] [address] documented as of this encounter Visit Diagnoses Diagnosis Essential hypertension Unspecified essential hypertension Mixed hyperlipidemia documented in this encounter Additional Health Concerns Assessment Noted Time PHQ-9 Depression Total Score: 0 02/27/20 9:14 AM EST documented as of this encounter Care Teams Instructional Consultant Relationship Specialty Start Date End Date Mariaa Anand NP [address] [place] [address] PCP - General Family Medicine 01/15/23 documented as of this encounter
--- OUTSIDE RECORDS SUMMARY | 2024-12-18 06:37 | XMS_ITS | Encounter Summary ---
Author Organization [employer] Address [address] [facility] [address] [place] [address] Care Team Providers Care Spanish Speaking Babysitter Name Role Phone Mariaa Anand FUNERAL PREARRANGEMENT COUNSELOR Primary Care Provider [phone] Reason for Visit * Reason Onset Date Comments Med Change Request Prior Authorization 05/12/2023 amLODIPine B esylate-Valsartan 5-320MG tablets Encounter Details Date Type Department Care Team ([facility] Contact Info) Description 05/12/2023 Refill [facility] MEDICINE [address] [place] [address] Mariaa Anand NP [address] [place] [address] Essential hypertension Social History Tobacco Use Types [...] AM EDT documented as of this encounter Miscellaneous Notes * Telephone Encounter - Brisa Llanes RN - 05/24/2023 12:23 PM EST T/C to pt via [employer] [place] #[id number] to advise pt nurse visit 05/25/23 is cancelled due to weather and to reschedule. No answer, no option to leave v/m as v/m is not set up. * Telephone Encounter - Brisa Llanes RN - 05/24/2023 10:08 AM EST T/C placed to pt via [employer] Radio Frequency Design Engineer to determine whether pt would like to reschedule nurse visit scheduled 05/25/23 due weather. No answer, unable to leave v/m as v/m is not set up. documented in this encounter Plan of Treatment Upcoming Encounters Date Type Department Care Team (Late st Contact Info) Description 12/20/2024 9:00 AM EDT Office Visit [facility] OPTOMETRY [address] [place] [address] Dung, Zohra, OD [address] [place] [address] documented as of this encounter Visit Diagnoses Diagnosis Essential hypertension Unspecified essential hypertension documented in this encounter Additional Health Concerns Assessment Noted Time PHQ-9 Depression Total Score: 0 11/17/20 23 9:14 AM EST documented as of this encounter Care Teams Spanish Speaking Babysitter Relationship Specialty Start Date End Date Mariaa Anand NP [address] [place] [address] PCP - General Family Medicine 01/15/23 documented as of this encounter
[2024-12-18 06:57] LABS: MANUAL DIFF FLAG NO
[2024-12-18 07:42] LABS: Hematocrit 41.9 % (42.0-52.0); Hemoglobin 14.0 g/dl (14.0-18.0); Imm Gran Abs Auto 0.01 X10*3/uL (0.00-0.03); Imm Gran Pct Auto 0.2 % (0.0-0.4); Lymphocytes Absolute Auto 2.4 X10*3/uL (1.2-4.9); Mean Corpuscular HGB Conc 33.4 g/dl (31.0-36.0); Mean Corpuscular Hemoglobin 29.9 pg (27.0-33.0); Mean Corpuscular Volume 89.5 fL (80.0-98.0); NRBC Abs Auto 0.000 X10*3/uL (0.0-0.012); NRBC Pct Auto 0.0 /100WBC (0.0-0.2); Platelet Count 175 X10*3/uL (160-400); Red Blood Count 4.68 X10*6/uL (4.60-5.80); White Blood Count 4.2 X10*3/uL (4.8-10.8)
[2024-12-18 08:05] LABS: Anion Gap 15 (12-20); Blood Urea Nitrogen 21 mg/dL (9-16); Calcium 10.8 mg/dL (8.4-10.2); Carbon Dioxide 27 mmol/L (22-29); Chloride 105 mmol/L (96-108); Estimated Glomerular Filt Rate 59; Potassium 4.7 mmol/L (3.3-5.1); Sodium 142 mmol/L (135-145)
[2024-12-18 08:52] LABS: Appearance Urine Clear; Glucose Urine UA Negative (Negative); PH 5.5 (5.0-9.0); Specific Gravity - Urine 1.025 (1.005-1.025); UMIC TRIGGER UA YES
[2024-12-18 09:52] LABS: Protein/Creatinine Ratio, Ur 0.55 (<0.2); Total Protein Urine Random 182 mg/dL (<12)
== END 2024-12-18 06:35 | disposition home or self-care (01) ==
LOC: HO.LAB 06:34
PROVIDERS: PCP Internal Medicine Nephrology; Visit Provider Nurse Practitioner
DX: E11.8 Type 2 diabetes mellitus with unspecified complications (principal); I10 Essential (primary) hypertension; D50.9 Iron deficiency anemia, unspecified; R80.9 Proteinuria, unspecified
CPT/HCPCS: 36415; 80051; 81001; 82310; 82565; 82570; 84156; 84520; 85025; 87086